=== PATIENT | female | born 1990 | race Caucasian/White ===

== ENCOUNTER 2018-11-28 05:04 | Day surgery (SDC) | payer OTHER, MEDICAID ==
[2018-11-26 12:22] LABS: BASOPHILS % (AUTO) 0.4 % (0-1); EOSINOPHILS # (AUTO) 0.1 X10'3 (0-0.9); EOSINOPHILS % (AUTO) 1.1 % (0-6); LYMPHOCYTES # (AUTO) 2.4 X10'3 (1.1-4.8); LYMPHOCYTES % (AUTO) 28.2 % (21-51); MEAN CORPUSCULAR HEMOGLOBIN 29.4 PG (27.0-31.0); MEAN CORPUSCULAR VOLUME 86.7 FL (78-98); MEAN PLATELET VOLUME 8.5 FL (7.4-10.4); MONOCYTES # (AUTO) 0.5 X10'3 (0-0.9); MONOCYTES % (AUTO) 5.8 % (2-12); NEUTROPHILS # (AUTO) 5.5 X10'3 (1.8-7.7); NEUTROPHILS % (AUTO) 64.5 % (42-75); PRE OP HEMATOCRIT 38.2 % (35.0-45.0); PRE OP PLATELET COUNT 277 X10'3 (140-440); RED CELL DISTRIBUTION WIDTH 15.1 % (11.5-14.5)
[2018-11-26 12:36] LABS: ALBUMIN/GLOBULIN RATIO 1.1 (1.1-1.5); ALKALINE PHOSPHATASE 76 IU/L (46-116); BLOOD UREA NITROGEN 11 MG/DL (7-18); BUN/CREATININE RATIO 14.5 (6.6-38.0); CALCIUM 8.9 MG/DL (8.5-10.1); CHLORIDE 103 MMOL/L (99-107); CREATININE 0.76 MG/DL (0.40-0.90); PRE OP ALT 23 U/L (30-65); PRE OP ANION GAP 11 (8-16); PRE OP AST 13 U/L (10-37); PRE OP BILIRUB, TOTAL 0.3 MG/DL (0.0-1.0); PRE OP GLUCOSE 91 MG/DL (70-104); PRE OP POTASSIUM 4.1 MMOL/L (3.4-5.1); PRE OP SODIUM 139 MMOL/L (135-145); TOTAL CARBON DIOXIDE 25.5 MMOL/L (24-32); TOTAL PROTEIN 7.7 G/DL (6.4-8.2); eGFR > 90 ML/MIN
[2018-11-26 12:40] LABS: HCG SERUM QL NEGATIVE
[2018-11-28] VITALS (7 sets, daily range): BP systolic 120–143; BP diastolic 73–84
[~2018-11-28] VITALS: Ht 165.1 cm; Wt 67.2 kg
[~2018-11-28 05:04] MED LIST: NO HOME MEDS
[2018-11-28] MEDS ORDERED: ringers solution, lacted 1,000 ML IV SCH ×2 (05:30→07:42)
[2018-11-28] MEDS ORDERED: cefazolin/dext.iso 2gm/50ml 50 ML IV ONE (05:30)
[2018-11-28] MEDS ORDERED: [UNRECOGNIZED DRUG - REMARK] IV NR (05:30)
[2018-11-28] MEDS ORDERED: cefazolin/dext.iso 2gm/100 ML IV ONE (05:30)
[2018-11-28] MEDS ORDERED: famotidine 20mg tablet PO ONE (05:30)
[2018-11-28] MEDS ORDERED: LIDOcaine 1% (10mg/ml) 2ml vial ONE (05:36)
[2018-11-28] MEDS ORDERED: BUPIVAcaine/PF 2.5mg/ml (0.25%) 10ml vial ONE (06:42)
[2018-11-28] MEDS ORDERED: sevoflurane 250ml liquid IH ONE (07:11)
[2018-11-28] MEDS ORDERED: glycopyrrolate 0.2mg/ml inj ONE (07:11)
[2018-11-28] MEDS ORDERED: fentaNYL/PF 50MCG/1 ML 2ML syringe ONE (07:15)
[2018-11-28] MEDS ORDERED: midazolam 2 mg/2 ml injection ONE (07:15)
[2018-11-28] MEDS ORDERED: epiNEPHrine 1 mg/ml inj ONE (07:15)
[2018-11-28] MEDS ORDERED: propofol inj 20 ML IV ONE (07:16)
[2018-11-28] MEDS ORDERED: rocuronium 10mg/ml inj IV ONE (07:23)
[2018-11-28] MEDS ORDERED: ondansetron/PF 4mg/2ml inj ONE (07:28)
[2018-11-28] MEDS ORDERED: dexamethasone sod phosphate 4mg/ml inj. ONE (07:28)
[2018-11-28] MEDS ORDERED: neostigmine methylsulfate 1 MG/ML 10ml vial ONE (07:41)
[2018-11-28] MEDS ORDERED: morphine 4 MG/ML inj SYRINge IV PRN ×2 (07:45)
[2018-11-28] MEDS ORDERED: meperidine/PF 25mg/ml syringe IV PRN ×3 (07:45)
[2018-11-28] MEDS ORDERED: ondansetron/PF 4mg/2ml inj IV PRN (07:45)
[2018-11-28] MEDS ORDERED: proCHLORperazine 10 MG/2 ml inj IV PRN (07:45)
[2018-11-28] MEDS ORDERED: ketorolac trometh. 30mg/ml inj. ONE (07:46)
--- NOTE | 2018-11-28 07:55 | NUR ---
Received from OR via , accompanied by Anesthesiologist ALOK and report given by Anesthesiolgist. AWAKE IN NO RESP DISTRESS SKIN WARM AND DRY HOB ELEVATED, ABD SOFT DSG DI, NO CO PAIN
--- NOTE | 2018-11-28 08:39 | NUR ---
AAWAKE VS WNL PAIN MINIMAL, DIDNT WANT PAIN MED YET. ABD SOFT DSG DI, TOLERATES LIQUIDS VOIDED QS CLEAR URINE. DISCH INSTR GIVEN TO PT AND UNDERSTOOD. HOME WITH FRIEND AT [id number]
== END 2018-11-28 08:45 | disposition home or self-care (01) ==
LOC: PAS 05:04
PROVIDERS: ATTEND Obstetrics & Gynecology
DX: Z30.2 Encounter for sterilization (principal); Z88.8 Allergy status to other drugs, medicaments and biological substances; Z79.899 Other long term (current) drug therapy
CPT/HCPCS: 36415; 58670; 80053; 82948; 84703; 85025; A6258; J0171; J1100; J1885; J2001; J2250; J2405; J2704; J2710; J3010; J3490; J7120; A4618; A6402; A7000

== ENCOUNTER 2024-11-22 15:24 | Emergency (ER) | payer MEDICAID, OTHER ==
[~2024-11-22] VITALS: Ht 167.6 cm; Wt 50.0 kg
[2024-11-22 15:42] VITALS: TEMP 98.1
--- NOTE | 2024-11-22 17:26 | Physician Documentation ---
History of Present Illness ~ Chief Complaint: Medication Request Stated Complaint: HIP/BACK PAIN Time Seen by MD: 17:11 OK to notify your PCP?: Yes Source: patient Mode of Arrival: POV Exam Limitations: no limitations HPI 34-year old female with chief complaint fractured hip which she states she was diagnosed with two weeks ago. [place] when she fell and landed on her left hip and right heel but states that she was told that she fractured her right hip. She states the on-call orthopedist at [facility] told her that it was not anything surgical and that she just needed to have repeat x-rays in 4-6 weeks. They discharged her with five tablets of Percocet and Flexeril. She still has the Flexeril but is out of the Percocet and is hoping she can get a refill as the pain is keeping her awake at night. She currently has f/u with her PCP on 12/07/24. She has no orthopedist follow up. The pain is the biggest issue at night. Medication Reconciliation Allergies: Coded Allergies: bee venom protein (honey bee) (Verified Allergy, Severe, 11/22/24) tramadol (Verified Allergy, Severe, SEIZURES, 11/22/24) amoxicillin (Verified Allergy, Intermediate, RASH/HIVES, 11/22/24) diphenhydramine (Verified Allergy, Intermediate, RASH/HIVES, 11/22/24) erythromycin base (Verified Allergy, Intermediate, RASH/HIVES, 11/22/24) iodine (Verified Allergy, Intermediate, RASH/HIVES, 11/22/24) shellfish derived (Verified Allergy, Intermediate, RASH/HIVES, 11/27/18) vancomycin (Verified Allergy, Intermediate, RASH/HIVES, 11/27/18) Miscellaneous Medications Home Med List (No Home Medications), (Reported) Past Medical History Past Medical History: No Pertinent History Past Surgical History: noncontributory Lives In: Home Review of Systems All Other Systems at this time: Reviewed and Negative Physical Exam Vital Signs: Temperature: 98.1, Source: Temporal, Heart Rate: 77, Respiratory Rate: 18, BP: 116/79, Pulse Oximetry: 100, Weight: 50.000 Physical Exam General Appearance: Alert, WD/WN. NAD. HEENT: NCAT, PERRL, EOMI. Neck: Supple, trachea midline. Cardiovascular: RRR. No m/r/g. Lungs: CTAB. Breathing unlabored Extremities: Normal inspection. No edema. Skin: Warm/dry, normal color Neurological: Alert and oriented x4, normal gait. Psychiatric: Affect congruent with mood. Progress Results/Orders Results/Orders Vital Signs 11/22/24 15:42 Temp 98.1 Pulse 77 Resp 18 B/P (MAP) 116/79 Pulse Ox 100 Medical Decision Making General Diff Dx:Considerations: Include: Abrasion, Contusion, Fracture, Hematoma, Laceration, Malunion, Neurovascular injury, Open fracture, Sprain, Ulcer, Other Additional Comment questionable right hip fracture which is being treated with conservative management. patient's pain is more over her iliac crest area making me suspect if a fracture it is more of a pelvic fracture especially considering she was observed weight bearing normally. Departure Time of Disposition: 17:23 Disposition: 01 HOME / SELF CARE / HOMELESS Impression: Primary Impression: Hip joint pain Qualified Codes: M25.551 - Pain in right hip Condition: Stable Discharge Instructions: Medical Screening Exam Referrals: NO PRIMARY CARE PROVIDER (PCP) Prescriptions Hydrocodone Bit/Acetaminophen (Hydrocodone-Apap 10-325 Tablet) 10mg/325mg Tablet 1 TAB PO qhs PRN for pain for 5 Days, #5 TAB dx: M25.55 Prov: DEMAR VALENCIA 11/22/24 Education Educated: Patient Educated regarding: treatment, need for follow up Signature Scribe Signature: x Attestation: DEMAR Hedrick Nov 22, 2024 17:26
[2024-11-22] MEDS ORDERED: HYDR-3973 PO (17:27)
[2024-11-22] MEDS: HYDROcodone/acetaminophen 10/325mg tab PO ONE (18:15)
[2024-11-22 18:27] VITALS: BP 116/74; PULSE 68; RESP 18; O2SAT 98
== END 2024-11-22 18:29 | disposition home or self-care (01) ==
LOC: ER 15:24
DX: S72.001A Fracture of unspecified part of neck of right femur, initial encounter for closed fracture (principal); Z88.0 Allergy status to penicillin; Z88.1 Allergy status to other antibiotic agents; Z88.5 Allergy status to narcotic agent; Z88.8 Allergy status to other drugs, medicaments and biological substances; Z91.013 Allergy to seafood; Z91.030 Bee allergy status; W19.XXXA Unspecified fall, initial encounter; Y93.89 Activity, other specified; Y92.89 Other specified places as the place of occurrence of the external cause; Y99.8 Other external cause status
CPT/HCPCS: 99283

== ENCOUNTER 2024-12-19 19:51 | Emergency (ER) | payer MEDICAID ==
[~2024-12-19] VITALS: Ht 167.6 cm; Wt 52.0 kg
[2024-12-19 19:52] VITALS: BP 106/82; PULSE 78; RESP 18; TEMP 99; O2SAT 98
== END 2024-12-19 21:12 | disposition left against medical advice (07) ==
LOC: ER 19:51
DX: S90.861A Insect bite (nonvenomous), right foot, initial encounter (principal); Z53.21 Procedure and treatment not carried out due to patient leaving prior to being seen by health care provider; W57.XXXA Bitten or stung by nonvenomous insect and other nonvenomous arthropods, initial encounter; Y93.89 Activity, other specified; Y92.89 Other specified places as the place of occurrence of the external cause; Y99.8 Other external cause status